=== PATIENT | female | born 1940 | race Caucasian/White ===

== ENCOUNTER 2016-09-23 08:38 | Inpatient (IN) | payer MEDICARE, OTHER ==
[~2016-09-23] VITALS: Ht 160 cm; Wt 70.5 kg
[~2016-09-23 08:38] MED LIST: ASPI81TA82 PO; ATOR20TA42 PO; DOXA1 PO; ENAL20TA81 PO; FERR324T4 OR; FISH1000 PO; HYDR-2768 PO; LASI20TA PO; LORT5TAB PO; METO50CR OR; NEXI40CA PO; NIAC500T5 PO; OYST500T77 PO; POTA-243 PO; VITA100018 OR; VITA250L OR
[2016-09-26] MEDS ORDERED: DIPH25CA PO ×2 (11:26)
[2016-09-26] MEDS ORDERED: CALC600T25 PO ×2 (11:26)
[2016-09-26] MEDS ORDERED: VITA500S3 SL ×2 (11:26)
[2016-09-26] MEDS ORDERED: NIAC500T67 PO ×2 (11:26)
[2016-09-26] MEDS ORDERED: CARV25TA PO ×2 (11:26)
[2016-09-26] MEDS ORDERED: MAPA500T13 PO ×2 (11:26)
[2016-09-26] MEDS ORDERED: ESSE250T PO ×2 (11:26)
[2016-09-26] MEDS ORDERED: ENAL20TA PO ×2 (11:26)
[2016-09-26] MEDS ORDERED: FISH1000 PO ×2 (11:26)
[2016-09-26] MEDS ORDERED: ASPI81TA81 PO ×2 (11:26)
[2016-09-26] MEDS ORDERED: D31000TA PO ×2 (11:26)
[2016-09-26] MEDS ORDERED: ATOR20TA15 PO ×2 (11:26)
[2016-09-26] MEDS ORDERED: ALLO100T PO ×2 (11:26)
[2016-09-26] MEDS ORDERED: FURO20TA PO ×2 (11:26)
[2016-09-26] MEDS ORDERED: FERR325T2 PO ×2 (11:27)
--- NOTE | 2016-09-30 08:36 | MH ---
cc: LYLANETTEYUN DATE OF ADMISSION: 10/05/2016 ADMITTING DIAGNOSIS Osteoarthritis of the right knee. Pain right knee. Gait disturbance. HISTORY The patient is a 76-year-old white female who has had a rather lengthy history of pain involving her right knee. In approximately 2007 she had undergone arthroscopic surgery for history of early arthritis as well as a medial meniscus tear. At that time a partial medial meniscectomy as well as a chondroplasty of the medial femoral condyle was completed. The patient reported lingering symptoms following treatment especially about the medial aspect of her knee which had persisted over the following years and with the passage of time the patient becoming somewhat more symptomatic which had begun to interfere with her ability to conform to walking activities. She had been taking Tylenol for pain management reporting a history of stage IV renal disease. She presented to the undersigned physician in July of this past year and at that time x-ray studies revealed obvious degenerative change with [id number] apposition about the medial compartment. Findings and treatment options were reviewed. At that time the patient was treated with an intra-articular steroid injection and followed on an outpatient basis thereafter. She experienced some temporary benefit from the injection and continued to try and conform to a walking exercise program. She was thus encouraged to continue with conservative management and seemed to be doing reasonably well until returning to the office in August of this year and at that time she reported that with the passage of time she was becoming progressively more symptomatic with pain that was now interfering with all weightbearing activities. She continued to take Tylenol for pain relief indicating that she was advised to limit various medications because of her stage IV renal disease. Her current x-ray studies revealed obvious degenerative change with [id number] apposition about the medial compartment for which findings and treatment options were again reviewed. The pros and cons of continuing with conservative management versus operative intervention that would involve total knee arthroplasty were outlined in detail. Emphasis was made regarding the fact that the decision to proceed with surgery would be left entirely to the patient's discretion as well as being dependent upon both medical and renal medicine clearance. The patient subsequently proceeded with medical evaluation in this regard and having received medical clearances as described and in compliance with her wishes to proceed with surgery as discussed. She is currently being admitted in order that total knee replacement be accomplished. PAST MEDICAL HISTORY Her past medical history, hospitalizations and surgeries have included childbirth in addition to the arthroscopic surgery described. Her medical illnesses include stage IV renal disease. Elevated cholesterol, gout and hypertension. MEDICATIONS Current medications: 1. Atorvastatin 20 milligrams daily. 2. Allopurinol 100 milligrams daily. 3. Enalapril 20 milligrams twice daily. 4. Carvedilol 25 milligrams twice daily. 5. Furosemide 20 milligrams daily. 6. Tylenol 500 milligrams daily. 7. Benadryl 25 milligrams daily. 8. Iron supplement 65 milligrams. 9. Niacin 500 milligrams daily. 10. Fish oil 1000 milligrams daily. 11. Vitamin B12 500 milligrams daily. 12. Vitamin D3 1000 international units daily. 13. Calcium 600 milligrams daily. 14. Magnesium 500 milligrams daily. 15. Aspirin 81 milligram tablet daily. ALLERGIES The patient denies any known drug allergies. REVIEW OF SYSTEMS She wears glasses. Denies headache, seizure or syncope. No sinus congestion or epistaxis. Auditory acuity intact. No tinnitus. No bleeding gums or dysphagia. Denies cough, shortness of breath, upper respiratory infection or tuberculosis. There is a positive history of pneumonia. No angina or heart disease. She is medically managed for hypertension. Her appetite is good. Bowel movements are regular. No gallbladder disease, ulcers or hemorrhoids. There is a positive history of hepatitis. No urinary tract infection. She has a history of stage IV renal disease but has not required dialysis treatment. No prior fractures. No psychiatric illness. Her remaining review of systems is unremarkable and noncontributory. FAMILY HISTORY The patient has been for 14 years but has cohabitated with her for almost a 40-year period of time. He is 74 years of age and described as being in good health. She has two sons and one daughter by a previous marriage, all of whom are indicated to be in good health. Family history is otherwise positive for hypertension, congestive heart failure and heart disease. 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 She completed a GED education. Denies active use of tobacco and ethanol. PHYSICAL EXAMINATION Height 5 feet 3 inches, weight 154 pounds. GENERAL: An alert, oriented and responsive 76-year-old white female who sits quietly upon examination table with no apparent distress. HEENT: Pupils are equally round and reactive to light. Extraocular movements full. Sclerae clear. External nares clear. External auditory canals clear. Semi edentulous in the mandibular distribution. Mucous membranes pink and moist. Pharynx clear. NECK: Neck is supple. Active range of motion without significant pain. Carotid pulse palpable bilaterally. Trachea midline. Thyroid without enlargement. LUNGS: Clear to auscultation and percussion. No CVA tenderness. No discomfort throughout the dorsal lumbar spine. HEART: Regular rhythm. No murmur or gallop. ABDOMEN: Soft, nontender. Bowel sounds present. PELVIC: Per primary care physician. EXTREMITIES: Right knee there is a mild fullness about the knee consistent with redundancy of soft tissue, medial joint line tenderness without palpable deformity. Apprehension and compression sign negative. A 0 to 105 degrees range of motion with pain at the extremes of mobility and mild crepitation elicited. No collateral ligamentous instability. April test and drawer sign negative. Pivot shift and Anayeli sign positive for medial compartment pain. Straight-leg raising unremarkable at 80 degrees. Satisfactory mobility of the right hip with no associated pain. Antalgic gait. NEUROLOGIC: Cranial nerves II-XII grossly intact. IMPRESSION Osteoarthritis right knee. Pain right knee. Gait disturbance. PLAN Right total knee arthroplasty. The nature of the planned surgical procedure, the potential complications and the risks associated, the expectations of surgery and the consent form have been thoroughly reviewed with the patient in the presence of her prior to admission to the hospital. [place] has indicated her full understanding regarding all of the above and given consent to proceed with treatment as outlined. Medical evaluation and clearance for surgery will be completed by her primary care physician, Dr. Ab Zuniga, renal medicine clearance per Dr. Baldwin who will also be consulted to assist with postoperative medical management. MD CHANDLER Waddell/EO /5:15 PM /8:31 AM
[2016-10-05 08:14] VITALS: BP 143/71; PULSE 68; RESP 16; TEMP 98.1; O2SAT 98
[2016-10-05] MEDS ORDERED: ceFAZolin 2 GM PREMIX 50 ML ONE (08:21)
[2016-10-05] MEDS ORDERED: SODIUM CHLORID 0.9% 500 ML IV PRN (08:45)
[2016-10-05] MEDS ORDERED: INSULIN HUMAN REGULAR 1,000 UNITS/10 ML VIAL SQ PRN (08:45)
[2016-10-05] MEDS ORDERED: CHLORHEXIDINE GLUCONATE 2 % 1 PACK (2 CLOTHS) TOPICAL PRN (08:45)
[2016-10-05] MEDS ORDERED: POVIDONE IODINE 7.5% SCRUB 118 ML BOTTLE TOPICAL SCH (08:45)
[2016-10-05] MEDS ORDERED: POVIDONE IODINE 5% (ANTISEPSIS KIT) 4 APPLICATIONS EACH NARE PRN (08:45)
[2016-10-05] MEDS ORDERED: ceFAZolin 2 GM PREMIX 50 ML IV SCH (08:45)
[2016-10-05] MEDS ORDERED: LACTATED RINGER'S 1000 ML IV PRN (08:45)
[2016-10-05] MEDS ORDERED: METOPROLOL TARTRATE 25 MG TAB PO PRN (08:45)
[2016-10-05] MEDS ORDERED: TRANEXAMIC ACID 1 GM PRIOR TO PROCEDURE IV SCH ×2 (09:00)
[2016-10-05] MEDS ORDERED: fentaNYL CITRATE 250 MCG/5 ML AMP ONE (09:42)
[2016-10-05] MEDS ORDERED: ACETAMINOPHEN 1000 MG/100 ML VIAL IV ONE (09:49)
[2016-10-05] MEDS ORDERED: ONDANSETRON HCL 4 MG/2 ML VIAL ONE (09:50)
[2016-10-05] MEDS ORDERED: ceFAZolin INJ 1,000 MG VIAL ONE ×2 (10:19→14:29)
[2016-10-05] MEDS ORDERED: LACTATED RINGER'S 1000 ML INJ 1,000 ML IV ONE (12:00)
[2016-10-05] MEDS ORDERED: TRANEXAMIC ACID 1 GM POST-OP IV SCH ×2 (12:00)
[2016-10-05] MEDS ORDERED: PROPOFOL 200 MG/20 ML AMP IV ONE (12:00)
[2016-10-05] MEDS ORDERED: PHENYLEPH/NS 1000 MCG/10 ML SYR IV ONE (12:00)
[2016-10-05] MEDS ORDERED: NEOSTIGMINE 3 MG/3 ML SYR IV ONE (12:00)
[2016-10-05] MEDS ORDERED: ePHEDrine/NS 25 MG/5 ML SYR IV ONE (12:00)
[2016-10-05] MEDS ORDERED: ONDANSETRON HCL 4 MG/2 ML VIAL IV PUSH ONE (12:00)
[2016-10-05] MEDS ORDERED: *morphine SULFATE 8 MG/ML PERIprocedure ONLY ONE (12:53)
[2016-10-05] MEDS ORDERED: MORPHINE SULFATE 4 MG/ML INJ ONE (12:54)
[2016-10-05] MEDS ORDERED: SODIUM CHLORIDE 0.9% FLUSH 5 ML FLUSH IVF PRN (13:00)
[2016-10-05] MEDS ORDERED: ONDANSETRON HCL 4 MG/2 ML VIAL IVP PRN (13:00)
[2016-10-05] MEDS ORDERED: ACETAMINOPHEN 325 MG TAB PO PRN (13:00)
[2016-10-05] MEDS ORDERED: PROMETHAZINE INJ 25 MG/ML VIAL IM PRN (13:00)
[2016-10-05] MEDS ORDERED: MISCELLANEOUS PHARMACY INFORMATION XX ONE (13:00)
[2016-10-05] MEDS ORDERED: NALOXONE HCL 0.4 MG/ML AMP IV PRN (13:00)
[2016-10-05] MEDS ORDERED: ACETAMINOPHEN/HYDROcodone 325 MG/5 MG TAB PO PRN (13:00)
[2016-10-05] MEDS ORDERED: diphenhydrAMINE HCL 25 MG CAP PO PRN (13:00)
[2016-10-05] MEDS ORDERED: Post-op Orders (for Pharmacy) MISC XX ONE (13:00)
[2016-10-05] MEDS ORDERED: ZOLPIDEM TARTRATE 5 MG TAB PO PRN (13:00)
[2016-10-05] MEDS ORDERED: TRANEXAMIC ACID INJ 1,000 MG in SODIUM CHLORIDE 0.9% INJ 100 ML IV SCH (13:00)
--- NOTE | 2016-10-05 13:37 | RADRPT ---
EXAM DATE/TIME: 10/05/2016 13:20 [facility] COMPARISON: No previous studies available for comparison. INDICATIONS : Post op, right knee replacement. MEDICAL HISTORY : None. SURGICAL HISTORY : None. ENCOUNTER: Initial ACUITY: 1 day PAIN SCORE: 0/10 LOCATION: Right knee FINDINGS: Two view examination of the right knee demonstrates no evidence of fracture or dislocation. Left knee arthroplasty. Postsurgical changes. CONCLUSION: Left knee arthroplasty.. Heri Abdalla MD on October 05, 2016 at 13:34 Board Certified Radiologist. This report was verified electronically.
[2016-10-05] MEDS: DEXT 5%-NACL 0.45% 1000 ML INJ 1,000 ML IV SCH (13:45)
--- NOTE | 2016-10-05 14:10 | MP ---
cc: YUN HERNANDEZ DATE OF SURGERY: 10/05/2016 PREOPERATIVE DIAGNOSIS Osteoarthritis of the right knee, pain right knee and gait disturbance. POSTOPERATIVE DIAGNOSIS Osteoarthritis of the right knee, pain right knee and gait disturbance. PROCEDURE Right total knee arthroplasty. SURGEON Yun Hernandez MD ANESTHESIA General endotracheal. INDICATIONS A 76-year-old white female with a lengthy history of right knee pain dating back to at least 2007 when she had undergone arthroscopic surgery for history of arthritis and medial meniscus tear. A partial medial meniscectomy as well as chondroplasty of the medial femoral condyle was completed. The patient reported lingering symptoms following treatment, especially about the medial aspect of her knee which had persisted over the following years. With the passage of time she became progressively more symptomatic with pain that began to interfere with her ability to conform to walking activities. She had been taking Tylenol for pain management, reporting history of stage IV renal disease. She presented to the undersigned physician in July of this past year and at that time her x-ray studies revealed obvious degenerative change with [id number] apposition about the medial compartment. Findings and treatment options were reviewed. At that time the patient received an intra-articular steroid injection and was followed on outpatient basis thereafter. She described temporary benefit from the injection and tried to continue with her walking exercise program. She returned to the office in August of this year and at that time reported that she was becoming increasingly more symptomatic with pain that was now interfering with all weightbearing activities. She had continued to use Tylenol for pain relief, indicating that she was advised to limit various medications because of her stage IV renal disease. Her current x-ray studies revealed obvious degenerative change with [id number]-[id number] apposition about the medial compartment for which findings and treatment options were again reviewed. The pros and cons of continuing with conservative management versus operative intervention involving total knee arthroplasty were outlined in detail. Emphasis was made regarding the fact that the decision to proceed with surgery would be left entirely to the patient's discretion as well as being dependent upon both medical and renal medicine clearance. The patient subsequently proceeded with these clearances and returned to the office indicating that she was desirous of proceeding with treatment as discussed and in compliance with her wishes she has currently been admitted in order that right total knee replacement be completed. FORMAT Following induction of satisfactory general anesthesia by endotracheal intubation as completed per the department of anesthesia, a tourniquet was established around the proximal portion of the right lower extremity. The extremity proper was isolated with a U drape, thereafter being prepped with Betadine solution and draped into a sterile field in the routine manner. Prior to initiation of the actual procedure the standard time-out protocol was completed. All parameters were appropriately addressed and confirmed by operating room personnel. The extremity was elevated for approximately 1 minute and the tourniquet thus inflated to 250 mmHg pressure. A sharp skin incision was initiated midline over the anterior aspect of the knee and developed to underlying subcutaneous tissue with hemostasis maintained by electrocautery. By deepening dissection the anterior capsule was exposed, a medial capsulotomy completed and the patella subluxed in a lateral orientation. Examination of the joint space revealed severe degenerative changes throughout the medial compartment with complete erosion of articular cartilage and subchondral bone exposed. Degenerative changes extended into the patellofemoral articulation. The articular surface of the patella was resected with power saw. The three hole guide was utilized for establishing post holes. Anterior cruciate ligament as well as medial and lateral meniscus structures were sharply excised. A centering hole was placed in the distal aspect of the femur allowing positioning of the intramedullary guide. The distal femoral cutting jig was attached and the distal femur resected. AP measurement noted 62.5 mm sizing to be appropriate. The matching cutting block was positioned, anterior, posterior and chamfer cuts were completed. The tibial plateau was thereafter subluxed in an anterior orientation allowing positioning of the extramedullary guide. The tibial plateau was resected and measured with 71 mm sizing determined to be satisfactory. A trial reduction followed utilizing a 62.5 mm anatomic femoral component and a 71 mm tibial base with a 10 mm bearing insert. The knee was readily brought to full extension. There was no laxity to varus valgus stress at both 0 and 90 degrees flexed posture. Orientation was confirmed as being appropriate with measurement of the pelvic guide through the mechanical axis of the knee. A trial reduction followed utilizing a 31 mm standard patellar button. Once again good tracking was demonstrated with no tendency toward subluxation. All trial components being removed, the remaining portion of the proximal tibia was prepared for insertion of the permanent component. The joint space was thoroughly lavaged with pulsating antibiotic solution, hemostasis being maintained by electrocautery. An autogenous bone plug was inserted into the distal femoral guide hole and thereafter preparation of [place] bone cement was utilized in inserting knee components in a sequential fashion which included a 71 mm fixed cruciate tibial plate to which a 10 mm Vanguard tibial bearing insert was secured with locking venegas. The 62.5 mm Vanguard femoral component was firmly seated onto the distal femur, excess cement being removed the knee was brought to full extension and thereafter the 31 mm standard three post patellar button was attached and maintained in place with patellar clamp while cement hardening was completed. Final range of motion assessment noted good tracking and stability throughout the knee. Irrigation was repeated with hemostasis maintained. Autovac drain tubes were inserted through superior stab wounds. The capsule was repaired with 0 Vicryl suture. The remaining portion of the wound was closed in layers in the routine manner, skin margins being reapproximated with a running subcuticular 3-0 Vicryl suture over which Steri-Strips were applied. Xeroform gauze and a bulky dry sterile dressing were placed. The tourniquet was deflated after 41 minutes of tourniquet time. The extremity being supported in a canvas knee splint, anesthesia was discontinued and she was thereafter transferred to a hospital bed and returned to the recovery room in satisfactory condition having tolerated her operative procedure well. Estimated blood loss was approximately 100 ccs as determined per anesthesia. All implants were of the [employer] laboratory tester. Yun Hernandez MD NBS/TLL /12:53 PM /1:47 PM
[2016-10-05] MEDS ORDERED: *ONDANSETRON 4 MG VIAL PERIprocedural Use ONLY ONE (14:55)
[2016-10-05] MEDS ORDERED: MORPHINE SULFATE 30 MG/30 ML PCA IV SCH (15:00)
[2016-10-05] MEDS ORDERED: DEXT 5%-NACL 0.45% 1000 ML INJ 1,000 ML IV SCH (15:00)
[2016-10-05] MEDS ORDERED: *ENALAPRILAT 1.25 MG/ML VIAL PERIprocedural Use ONLY ONE (15:31)
--- NOTE | 2016-10-05 15:40 | HHI.PR ---
Addendum to Inpatient Note Addendum Reason: Additional Documentation Additional Information This is a 76-year-old female who was seen on consultation for medical management following right total knee replacement. She was seen by the undersigned at the recovery unit. She is alert and oriented. She is complaining of nausea and vomited twice during this interview. Her pain is well controlled. She has a history of chronic kidney disease stage IV for which she sees Dr. Baldwin. She also has a history of hyperlipidemia, hypertension and gout. Full consultation to follow Plan for Pain control Nausea control DVT prophylaxis Resume home medications Follow renal indices Follow electrolytes and replace as needed Wound management per orthopedics Thank you for allowing us to participate in the care of this pleasant lady We'll be following her along with you on a daily basis while hospitalized John Levine MD Oct 05, 2016 15:40
[2016-10-05] MEDS ORDERED: *PROMETHAZINE 25 MG/ML VIAL PERIprocedural use ONLY ONE (16:21)
[2016-10-05 17:13] LABS: BICARBONATE 24.4 MEQ/L (21.0-32.0); POTASSIUM 4.6 MEQ/L (3.5-5.1)
--- NOTE | 2016-10-05 18:18 | PD.CONS ---
[facility] Service Nephrology Consult Requested By Dr. Carmona Reason for Consult Known to our services for CKD stage 4 Primary Care Physician Ab Zuniga M.D. History of Present Illness The patient is a 76 yo [place] female who is known to our services for CKD stage 4. She is admitted to this facility for R knee replacement that she underwent this AM. We have been consulted for renal management. She is seen in PACU and is recovering well thus far. She is alert and oriented and is good spirits. Says she is in minimal pain only. Had held her Enalapril as directed this AM and BP have been elevated. Otherwise, has no complaints currently. Past Family Social History Allergies: Coded Allergies: No Known Allergies (Verified , 10/05/16) Past Medical History CKD stage 4 HTN Anemia 2ndary hyperparathyroidism Vit D def GERD Hypomagnesemia Peripheral edema No hx of CHF HLD Gout Past Surgical History R knee replacement L knee arthroplasty Reported Medications Reported Meds & Active Scripts Active Reported Ferrous Sulfate DR (Ferrous Sulfate) 325 Mg Tabdr 1 Tab PO DAILY Aspir-81 (Aspirin) 81 Mg Tabdr 1 Tab PO DAILY Magnesium 250 Mg Tab 500 Mg PO DAILY Calcium (Calcium Carbonate) 600 Mg Tab 1 Cap PO DAILY D3 (Cholecalciferol) 1,000 Unit Tab 11 Cap PO DAILY Vitamin B-12 (Cyanocobalamin) 500 Mcg Subl 500 Mcg SL DAILY Fish Oil ([place]-3 Fatty Acids) 1,000 Mg Cap 1 Cap PO DAILY Niacin (Niacinamide) 500 Mg Tablet 1 Tab PO DAILY Diphenhydramine (Diphenhydramine HCl) 25 Mg Cap 25 Mg PO HS PRN Mapap Extra Strength (Acetaminophen) 500 Mg Tab 500 Mg PO HS Furosemide 20 Mg Tab 20 Mg PO DAILY Carvedilol 25 Mg Tab 25 Mg PO BID Enalapril (Enalapril Maleate) 20 Mg Tab 20 Mg PO BID Allopurinol 100 Mg Tab 100 Mg PO DAILY Atorvastatin (Atorvastatin Calcium) 20 Mg Tab 20 Mg PO HS Active Ordered Medications Current Medications Medications (Trade) Dose Ordered Sig/Donald Route Start Time Stop Time Status Last Admin Povidone Iodine 1 applic 1 applic ONCE TOPICAL 10/05/16 08:45 10/08/16 08:44 10/05/16 08:00 Lactated Ringer's 1,000 ml @ 30 mls/hr Q24H PRN IV 10/05/16 08:45 10/08/16 08:44 10/05/16 08:15 (NS 500 ml Inj) 500 ml @ 30 mls/hr [id number] PRN IV 10/05/16 08:45 10/08/16 08:44 (NS Flush) 2 ml UNSCH PRN IVF 10/05/16 13:00 IV Flush 2 ml 2 ml BID IVF 10/05/16 21:00 (Ancef Inj/NS Inj) 100 ml @ 200 mls/hr Q6H IV 10/05/16 15:00 10/06/16 03:29 10/05/16 15:00 ([place] 5-325 Mg) 1 tab Q4H PRN PO 10/05/16 13:00 10/07/16 15:00 ([place] 5-325 Mg) 2 tab Q4H PRN PO 10/05/16 13:00 10/07/16 15:00 (Tylenol) 650 mg Q6H PRN PO 10/05/16 13:00 (Zofran Inj) 4 mg Q6H PRN IVP 10/05/16 13:00 (Colace) 100 mg BID PRN PO 10/05/16 13:00 (Ambien) 5 mg HS PRN PO 10/05/16 13:00 (Narcan Inj) 0.4 mg UNSCH PRN IV 10/05/16 13:00 (Benadryl) 25 mg Q6H PRN PO 10/05/16 13:00 (Morphine 1 Mg/ ml CUSTOMER TRAINING SPECIALIST) 30 mg UNSCH IV 10/05/16 15:00 10/06/16 14:59 10/05/16 15:18 CUSTOMER TRAINING SPECIALIST Dosage Infused (Pha) 1 Q8HR .XX 10/05/16 14:00 (Phenergan Inj) 25 mg Q6H PRN IM 10/05/16 13:00 (Dilaudid) 4 mg Q4H PRN PO 10/07/16 15:00 Aspirin 325 mg 325 mg DAILY PO 10/06/16 09:00 (D5W-1/2 NS 1000 ml Inj) 1,000 ml @ 100 mls/hr Q10H IV 10/05/16 14:45 10/05/16 13:45 Family History Mother with CHF Brother with HTN and CVA Social History and lives locally with her spouse No EtOH No tobacco use No illicits 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 Physical Exam Vital Signs Vital Signs Date Time Temp Pulse Resp B/P Pulse Ox O2 Delivery O2 Flow Rate FiO2 10/05/16 15:35 16 10/05/16 15:30 58 16 166/74 97 Nasal Cannula 2 10/05/16 15:18 16 10/05/16 15:00 52 16 167/70 98 Nasal Cannula 2 10/05/16 14:30 52 16 142/73 100 Nasal Cannula 2 10/05/16 14:00 50 16 141/73 100 Nasal Cannula 2 10/05/16 13:45 50 16 138/67 100 Nasal Cannula 2 10/05/16 13:30 50 16 141/66 99 Nasal Cannula 2 10/05/16 13:15 52 16 149/68 99 Nasal Cannula 2 10/05/16 13:00 56 16 152/63 99 Nasal Cannula 2 10/05/16 12:45 96.5 68 16 134/62 99 Nasal Cannula 2 10/05/16 08:14 98.1 68 16 143/71 98 Physical Exam GENERAL: Laying in bed. NAD SKIN: Warm and dry. HEAD: Atraumatic. Normocephalic. EYES: Pupils equal and round. No scleral icterus. No injection or drainage. ENT: No nasal bleeding or discharge. Mucous membranes pink and moist. NECK: Trachea midline. No JVD. CARDIOVASCULAR: Regular rate and rhythm. RESPIRATORY: No accessory muscle use. Clear to auscultation. Breath sounds equal bilaterally. GASTROINTESTINAL: Abdomen soft, non-tender, nondistended. Hepatic and splenic margins not palpable. MUSCULOSKELETAL: Extremities without clubbing, cyanosis, or edema. No obvious deformities. R leg in brace NEUROLOGICAL: Awake and alert. No obvious cranial nerve deficits Normal speech. PSYCHIATRIC: Appropriate mood and affect; insight and judgment normal. Laboratory Laboratory Tests Test 10/05/16 10/05/16 08:10 16:36 Blood Type A NEGATIVE Antibody Screen NEGATIVE Blood Bank Comment Sodium Level 137 Potassium Level 4.6 Chloride Level 105 Carbon Dioxide Level 24.4 Anion Gap 8 Blood Urea Nitrogen 46 Creatinine 2.08 Estimat Glomerular Filtration 23 Rate Random Glucose 161 Calcium Level 8.7 Result Diagram: 10/05/16 1636 Imaging Last Impressions Knee X-Ray 10/05/16 1249 Signed Impressions: Service Date/Time: WedOctober 05, 2016 13:20 - CONCLUSION: Left knee arthroplasty.. Heri Abdalla MD Assessment and Plan Problem List: (1) CKD (chronic kidney disease) stage 4, GFR 15-29 ml/min Plan: The patient's baseline SCr is 2.1-2.3 with estimated GFR of 20-23. Post-op SCr seems to fall in line with baseline function. She is to continue on IVF overnight with consideration of discontinuing or decreasing tomorrow if her po intake is adequate. Continue to hold ACEi for the present as well as Lasix (both can be resumed at discharge). Continue to avoid any nephrotoxic medications such as NSAIDs (including Tordadol ) and iodinated contrast. We will continue to follow during admission. (2) HTN (hypertension) Plan: Enalapril has been held Will start Amlodipine 5mg QD to help with BP control. (3) Hypomagnesemia Plan: Hx of. Will check Mg levels (4) Secondary hyperparathyroidism of renal origin Plan: Check iPTH and Vit D (5) Vitamin D deficiency (6) Status post total right knee replacement Noemy Joyner Oct 05, 2016 18:18
--- NOTE | 2016-10-05 18:20 | PD.CONS ---
HPI Service [facility] Hospitalists Consult Requested By Dr. Hernandez Reason for Consult Medical management Primary Care Physician Ab Zuniga M.D. Diagnoses: History of Present Illness This is a pleasant 76-year-old female with history of mast arthritis, chronic kidney disease stage IV, hypertension, gout, hyperlipidemia. Patient has prior history of arthritis of the right knee, has had previous arthroscopic surgery due to medial meniscus tear. Patient has continued to have problems, she has failed outpatient therapy. She has a history of chronic kidney disease stage IV for which she sees Dr. Baldwin regularly , she has been stable and received renal clearance from him. Patient was admitted for elective surgery, she underwent a right total knee arthroplasty. Patient tolerated procedure fairly well, she's had nausea and vomiting which is now controlled. Hospitalist services are requested for medical management. Review of Systems Constitutional: DENIES: Diaphoretic episodes, Fatigue, Fever, Weight gain, Weight loss, Chills, Dizziness, Change in appetite, Night Sweats Endocrine: DENIES: Abnorml menstrual pattern, Heat/cold intolerance, Polydipsia , Polyuria, Polyphagia Eyes: DENIES: Blurred vision, Diplopia, Eye inflammation, Eye pain, Vision loss , Photosensitivity, Double Vision Ears, nose, mouth, throat: DENIES: Tinnitus, Hearing loss, Vertigo, Nasal discharge, Oral lesions, Throat pain, Hoarseness, Ear Pain, Running Nose, Epistaxis, Sinus Pain, Toothache, Odynophagia Respiratory: DENIES: Apneas, Cough, Snoring, Wheezing, Hemoptysis, Sputum production, Shortness of breath Cardiovascular: DENIES: Chest pain, Palpitations, Syncope, Dyspnea on Exertion , PND, Lower Extremity Edema, Orthopnea, Claudication Gastrointestinal: DENIES: Abdominal pain, Black stools, Bloody stools, Constipation, Diarrhea, Nausea, Vomiting, Difficulty Swallowing, Anorexia Genitourinary: DENIES: Abnormal vaginal bleeding, Dysmenorrhea, Dyspareunia, Sexual dysfunction, Urinary frequency, Urinary incontinence, Urgency, Hematuria , Dysuria, Nocturia, Vaginal discharge Musculoskeletal: COMPLAINS OF: Joint pain, DENIES: Muscle aches, Stiffness, Joint Swelling, Back pain, Neck pain Integumentary: DENIES: Abnormal pigmentation, Pruritus, Rash, Nail changes, Breast masses, Breast skin changes, Nipple discharge Hematologic/lymphatic: DENIES: Bruising, Lymphadenopathy Immunologic/allergic: DENIES: Eczema, Urticaria Neurologic: DENIES: Abnormal gait, Headache, Localized weakness, Paresthesias, Seizures, Speech Problems, Tremor, Poor Balance Psychiatric: DENIES: Anxiety, Confusion, Mood changes, Depression, Hallucinations, Agitation, Suicidal Ideation, Homicidal Ideation, Delusions Past Family Social History Past Medical History CK D stage IV, follows up regularly with Dr. Baldwin Arthritis Hyperlipidemia Gout Hypertension Past Surgical History Arthroscopic surgery Reported Medications Reported Meds & Active Scripts Active Reported Ferrous Sulfate DR (Ferrous Sulfate) 325 Mg Tabdr 1 Tab PO DAILY Aspir-81 (Aspirin) 81 Mg Tabdr 1 Tab PO DAILY Magnesium 250 Mg Tab 500 Mg PO DAILY Calcium (Calcium Carbonate) 600 Mg Tab 1 Cap PO DAILY D3 (Cholecalciferol) 1,000 Unit Tab 11 Cap PO DAILY Vitamin B-12 (Cyanocobalamin) 500 Mcg Subl 500 Mcg SL DAILY Fish Oil ([place]-3 Fatty Acids) 1,000 Mg Cap 1 Cap PO DAILY Niacin (Niacinamide) 500 Mg Tablet 1 Tab PO DAILY Diphenhydramine (Diphenhydramine HCl) 25 Mg Cap 25 Mg PO HS PRN Mapap Extra Strength (Acetaminophen) 500 Mg Tab 500 Mg PO HS Furosemide 20 Mg Tab 20 Mg PO DAILY Carvedilol 25 Mg Tab 25 Mg PO BID Enalapril (Enalapril Maleate) 20 Mg Tab 20 Mg PO BID Allopurinol 100 Mg Tab 100 Mg PO DAILY Atorvastatin (Atorvastatin Calcium) 20 Mg Tab 20 Mg PO HS Allergies: Coded Allergies: No Known Allergies (Verified , 10/05/16) Active Ordered Medications Inpatient Medications Acetaminophen (Tylenol) 650 mg Q6H PRN PO Temp > 101; Start 10/05/16 at 13:00 Acetaminophen/ Hydrocodone Bitart ([place] 5-325 Mg) 2 tab Q4H PRN PO PAIN SCALE 5 TO 10; Start 10/05/16 at 13:00; Stop 10/07/16 at 15:00 Aspirin 325 mg 325 mg DAILY PO ; Start 10/06/16 at 09:00 Cefazolin Sodium/ Dextrose 50 ml @ 100 mls/hr HE[employer] ADVISORY SERVICES MANAGER IV Last administered on 10/05/16t 09:00; Start 10/05/16 at 08:45; Stop 10/08/16 at 08:44 Cefazolin Sodium/ Sodium Chloride (Ancef Inj/NS Inj) 100 ml @ 200 mls/hr Q6H IV Last administered on 10/05/16 15:00; Start 10/05/16 at 15:00; Stop at 03:29 Chlorhexidine Gluconate (Chlorhexidine 2% Cloth) 3 pack HEALTHCARE ADVISORY SERVICES MANAGER PRN TOPICAL SEE LABEL COMMENTS Last administered on 10/05/16 07:00; Start 10/05/16 at 08:45 ; Stop 10/08/16 at 08:44 Dextrose/Sodium Chloride (D5W-1/2 NS 1000 ml Inj) 1,000 ml @ 100 mls/hr Q10H IV Last administered on 10/05/16 13:45; Start 10/05/16 at 14:45 Diphenhydramine HCl (Benadryl) 25 mg Q6H PRN PO ITCHING; Start 10/05/16 at 13: 00 Docusate Sodium (Colace) 100 mg BID PRN PO constipation; Start 10/05/16 at 13: 00 Hydromorphone HCl (Dilaudid) 4 mg Q4H PRN PO PAIN SCALE 4 TO 10; Start at 15:00 Insulin Human Regular (NovoLIN R INJ) See Protocol Table ... HEALTHCARE ADVISORY SERVICES MANAGER PRN SQ SEE PROTOCOL TABLE; Start 10/05/16 at 08:45; Stop 10/08/16 at 08:44 IV Flush (NS Flush) 2 ml UNSCH PRN IVF FLUSH AFTER USING IV ACCESS; Start 10/05 at 13:00 IV Flush 2 ml 2 ml BID IVF ; Start 10/05/16 at 21:00 Lactated Ringer's 1,000 ml @ 30 mls/hr Q24H PRN IV SEE LABEL COMMENTS Last administered on 10/05/16 08:15; Start 10/05/16 at 08:45; Stop 10/08/16 at 08:44 Metoprolol Tartrate (Lopressor) 25 mg HEALTHCARE ADVISORY SERVICES MANAGER PRN PO SEE LABEL COMMENTS; Start 10/05/16 at 08:45; Stop 10/08/16 at 08:44 Miscellaneous Information (Post-op Orders (for Pharmacy)) STAT ONCE XX ; Start 10/05/16 at 13:00; Stop 10/05/16 at 14:28; Status DC Miscellaneous Medication ([facility] Pharmacy Information) ONCE ONCE XX ; Start at 13:00; Stop 10/05/16 at 14:57; Status DC Morphine Sulfate (Morphine 1 Mg/ ml FAN BLADE ALIGNER) 30 mg UNSCH IV Last administered on 15:18; Start 10/05/16 at 15:00; Stop 10/06/16 at 14:59 Naloxone HCl (Narcan Inj) 0.4 mg UNSCH PRN IV RESPIRATORY RATE LESS THAN 10; Start 10/05/16 at 13:00 Ondansetron HCl (Zofran Inj) 4 mg Q6H PRN IVP NAUSEA OR VOMITING; Start at 13:00 FAN BLADE ALIGNER Dosage Infused (Pha) 1 Q8HR .XX ; Start 10/05/16 at 14:00 Povidone Iodine (Betadine 5% Antisepsis Kit) 1 applic HEALTHCARE ADVISORY SERVICES MANAGER PRN EACH NARE SEE LABEL COMMENTS Last administered on 10/05/16 08:30; Start 10/05/16 at 08:45 ; Stop 10/08/16 at 08:44 Povidone Iodine 1 applic 1 applic ONCE TOPICAL Last administered on 10/05/16 08:00; Start 10/05/16 at 08:45; Stop 10/08/16 at 08:44 Promethazine HCl (Phenergan Inj) 25 mg Q6H PRN IM nausea; Start 10/05/16 at 13: 00 Sodium Chloride (NS 500 ml Inj) 500 ml @ 30 mls/hr [id number] PRN IV SEE LABEL COMMENTS; Start 10/05/16 at 08:45; Stop 10/08/16 at 08:44 Tranexamic Acid 1000 mg/Sodium Chloride 110 ml @ 220 mls/hr ONCE IV ; Start at 12:00; Stop 10/05/16 at 18:00; Status DC Zolpidem Tartrate (Ambien) 5 mg HS PRN PO SLEEP; Start 10/05/16 at 13:00 Family History Hypertension, CHF, heart disease Social History Patient is , lives with . Has grown children No smoking No Substance abuse No alcohol Physical Exam Vital Signs Vital Signs Date Time Temp Pulse Resp B/P Pulse Ox O2 Delivery O2 Flow Rate FiO2 10/05/16 15:35 16 10/05/16 15:30 58 16 166/74 97 Nasal Cannula 2 10/05/16 15:18 16 10/05/16 15:00 52 16 167/70 98 Nasal Cannula 2 10/05/16 14:30 52 16 142/73 100 Nasal Cannula 2 10/05/16 14:00 50 16 141/73 100 Nasal Cannula 2 10/05/16 13:45 50 16 138/67 100 Nasal Cannula 2 10/05/16 13:30 50 16 141/66 99 Nasal Cannula 2 10/05/16 13:15 52 16 149/68 99 Nasal Cannula 2 10/05/16 13:00 56 16 152/63 99 Nasal Cannula 2 10/05/16 12:45 96.5 68 16 134/62 99 Nasal Cannula 2 10/05/16 08:14 98.1 68 16 143/71 98 Physical Exam GENERAL: This is a well-nourished, well-developed patient, in no apparent distress. SKIN: No rashes, ecchymoses or lesions. Cool and dry. HEAD: Atraumatic. Normocephalic. No temporal or scalp tenderness. EYES: Pupils equal round and reactive. Extraocular motions intact. No scleral icterus. No injection or drainage. ENT: Nose without bleeding, purulent drainage or septal hematoma. Throat without erythema, tonsillar hypertrophy or exudate. Uvula midline. Airway patent. NECK: Trachea midline. No JVD or lymphadenopathy. Supple, nontender, no meningeal signs. CARDIOVASCULAR: Regular rate and rhythm without murmurs, gallops, or rubs. RESPIRATORY: Clear to auscultation. Breath sounds equal bilaterally. No wheezes , rales, or rhonchi. GASTROINTESTINAL: Abdomen soft, non-tender, nondistended. No hepato-splenomegaly , or palpable masses. No guarding. MUSCULOSKELETAL: Right leg with bulky dressing, drain in place. Currently on CPM. Intact sensation to the right foot, bilateral pedal pulses 2+ bilaterally. Intact sensation to the right foot. No other joint abnormalities NEUROLOGICAL: Awake alert oriented 3. No focal deficits Laboratory Laboratory Tests Test 10/05/16 10/05/16 08:10 16:36 Blood Type A NEGATIVE Antibody Screen NEGATIVE Blood Bank Comment Sodium Level 137 Potassium Level 4.6 Chloride Level 105 Carbon Dioxide Level 24.4 Anion Gap 8 Blood Urea Nitrogen 46 Creatinine 2.08 Estimat Glomerular Filtration 23 Rate Random Glucose 161 Calcium Level 8.7 Result Diagram: 10/05/16 1636 Imaging Last Impressions Knee X-Ray 10/05/16 8829 Signed Impressions: Service Date/Time: Wednesday, October 05, 2016 13:20 - CONCLUSION: Left knee arthroplasty.. Heri Abdalla MD A/P Diagnosis: (1) Status post total right knee replacement (2) CKD (chronic kidney disease) stage 4, GFR 15-29 ml/min (3) HTN (hypertension) (4) Hyperlipidemia (5) Arthritis Assessment and Plan Thank you for this consultation, we will assist with medical management History of arthritis to right knee, status post right total knee replacement -Continue with postoperative orthopedic care to include pain management, physical therapy, wound care Pain management as needed Antiemetics as needed Start Xarelto 10 mg by mouth daily for DVT prophylaxis, continue with SCD -Physical therapy CK D stage IV Dr. Baldwin has been consulted Avoid nephrotoxic agents Monitor BMP Continue with IV fluids Hypertension, stable Continue with home medication Hyperlipidemia, stable -Continue home medications Gout Continue home medications Home medications reviewed, initiated as indicated Continue with Xarelto for DVT prophylaxis CBC and BMP in the morning Plan of care has been discussed with the patient, attending and registered nurse. Further management of the patient will be dependent on the hospital course This patient was seen by myself and Dr. Levine, this consultation is written on his behalf Problem Qualifiers (1) HTN (hypertension): Qualified Code: I10 - Essential hypertension (2) Hyperlipidemia: Qualified Code: E78.2 - Mixed hyperlipidemia Deyanira Stephens Oct 05, 2016 18:20
[2016-10-05] MEDS: amLODIPine BESYLATE 5 MG TAB PO SCH (19:36)
[2016-10-05 19:53] LABS: MAGNESIUM 1.7 MG/DL (1.5-2.5)
[2016-10-05] MEDS ORDERED: ENALAPRIL MALEATE 10 MG TAB PO SCH (21:00)
[2016-10-05] MEDS: SODIUM CHLORIDE 0.9% FLUSH 5 ML FLUSH IVF SCH (21:13)
[2016-10-05] MEDS: CARVEDILOL 12.5 MG TAB PO SCH (21:13)
[2016-10-05] MEDS: ATORVASTATIN 20 MG TAB PO SCH (21:13)
[2016-10-05] MEDS: PCA - TOTAL MG MORPHINE DELIVERED PER SHIFT SCH ×2 (21:14→21:40)
[2016-10-05 21:51] VITALS: BP 170/82; PULSE 68; RESP 20; TEMP 96.2; O2SAT 97
[2016-10-05 21:58] VITALS: BP 170/82; PULSE 68; RESP 20; TEMP 96.2; O2SAT 97
[2016-10-06] MEDS: DEXT 5%-NACL 0.45% 1000 ML INJ 1,000 ML IV SCH ×2 (00:57→10:45)
[2016-10-06 01:32] VITALS: BP 149/79; PULSE 75; RESP 16; TEMP 96.8; O2SAT 98
[2016-10-06 05:20] VITALS: BP 146/67; PULSE 99; RESP 16; TEMP 97.5; O2SAT 96
[2016-10-06] MEDS: PCA - TOTAL MG MORPHINE DELIVERED PER SHIFT SCH ×3 (05:27→21:36)
[2016-10-06 06:22] LABS: HEMATOCRIT 26.6 % (35.0-46.0); MEAN CELL VOLUME 96.2 FL (80.0-100.0); MEAN CORPUSCULAR HEMOGLOBIN 32.1 PG (27.0-34.0); MEAN CORPUSCULAR HGB CONC 33.4 % (32.0-36.0); PLATELET COUNT 145 TH/MM3 (150-450); RED BLOOD COUNT 2.76 MIL/MM3 (4.00-5.30); RED CELL DISTRIBUTION WIDTH 13.5 % (11.6-17.2); REVIEW FLAG FINAL; WHITE BLOOD COUNT 11.3 TH/MM3 (4.0-11.0)
[2016-10-06] MEDS ORDERED: ASPI325T PO (06:44)
[2016-10-06] MEDS ORDERED: HYDR-3516 PO (06:44)
--- NOTE | 2016-10-06 06:46 | HHI.FF ---
Face to Face Verification Diagnosis: (1) DJD (degenerative joint disease) of knee Physical Therapy Gait training Knee: Total knee, Protocol: Right, Full weight bearing Right LE Weight Bearing: WB as tolerated Right LE Range of Motion: Active ROM Nursing Dressing Changes: Daily dressing change I have seen patient Angeles Quintero on 10/06/16. My clinical findings support the need for the requested home health care services because: Limited ability to care for self High risk of falls I certify that my clinical findings support that this patient is homebound because: Post-op weakness Unsteady gait/balance Unsafe to leave home unassisted Lon Hernandez MD Oct 06, 2016 06:46
[2016-10-06] MEDS ORDERED: WALKER WHEELS/F1 MIS (06:48)
[2016-10-06 06:50] LABS: BICARBONATE 22.7 MEQ/L (21.0-32.0); POTASSIUM 4.5 MEQ/L (3.5-5.1)
[2016-10-06 08:00] VITALS: BP 136/65; PULSE 83; RESP 18; TEMP 97.7; O2SAT 97
[2016-10-06] MEDS: SODIUM CHLORIDE 0.9% FLUSH 5 ML FLUSH IVF SCH ×2 (08:23→21:20)
[2016-10-06] MEDS: CYANOCOBALAMIN 1,000 MCG TAB PO SCH (08:23)
[2016-10-06] MEDS: CARVEDILOL 12.5 MG TAB PO SCH ×2 (08:23→21:18)
[2016-10-06] MEDS: CHOLECALCIFEROL (VIT D3) 1000 UNIT TAB PO SCH (08:23)
[2016-10-06] MEDS: CALCIUM CARBONATE 1.25 GM (CA 500 MG) TAB PO SCH (08:23)
[2016-10-06] MEDS: amLODIPine BESYLATE 5 MG TAB PO SCH (08:24)
[2016-10-06] MEDS: FERROUS SULFATE 325 MG (65 MG ELEMENTAL IRON) TAB PO SCH (08:24)
[2016-10-06] MEDS ORDERED: ASPIRIN EC 325 MG TABEC PO SCH ×2 (09:00→21:00)
[2016-10-06] MEDS ORDERED: RIVAROXABAN 10 MG TAB PO SCH (09:00)
[2016-10-06] MEDS ORDERED: FUROSEMIDE 20 MG TAB PO SCH (09:00)
[2016-10-06] MEDS ORDERED: ASPIRIN 325 MG TAB PO SCH (09:00)
--- NOTE | 2016-10-06 11:38 | HHI.PR ---
Subjective Subjective Remarks Awake Up in chair Encourage by mouth fluids, patient states oral cavity dry Afebrile Review of Systems Constitutional Constitutional: Fatigue, Weakness Constitutional Remarks 10 point ROS done positives noted, she is status post right total knee GI/Abdomen GI/Abdomen Remarks Monitor bowel regimen none since admission Musculoskeletal MS: Weakness, Stiffness (encourage movement and up with physical therapy, patient is status post right total knee arthroplasty), Discomfort/Pain (right knee) Psychiatric Psychiatric: Normal Mood Vitals/Results Intake & Output 10/05/16 10/05/16 10/06/16 14:59 22:59 06:59 Intake Total 100 ml 0 ml Output Total 400 ml 845 ml Balance 100 ml -400 ml -845 ml Intake Oral 0 ml IV Total 100 ml Output Urine Total 400 ml 825 ml Drainage Total 0 ml 20 ml # Voids 2 Vital Signs Vital Signs Date Time Temp Pulse Resp B/P Pulse Ox O2 Delivery O2 Flow Rate FiO2 10/06/16 08:00 97.7 83 18 136/65 97 10/06/16 05:27 16 10/06/16 05:20 97.5 99 16 146/67 96 10/06/16 01:32 96.8 75 16 149/79 98 10/05/16 21:58 96.2 68 20 170/82 97 10/05/16 21:51 96.2 68 20 170/82 97 10/05/16 21:40 17 10/05/16 19:00 56 16 156/70 99 Room Air 10/05/16 18:00 58 16 161/77 99 Room Air 10/05/16 17:00 50 16 158/68 96 Room Air 10/05/16 16:00 52 16 160/69 97 10/05/16 15:35 16 10/05/16 15:30 58 16 166/74 97 Nasal Cannula 2 10/05/16 15:18 16 10/05/16 15:00 52 16 167/70 98 Nasal Cannula 2 10/05/16 14:30 52 16 142/73 100 Nasal Cannula 2 10/05/16 14:00 50 16 141/73 100 Nasal Cannula 2 10/05/16 13:45 50 16 138/67 100 Nasal Cannula 2 10/05/16 13:30 50 16 141/66 99 Nasal Cannula 2 10/05/16 13:15 52 16 149/68 99 Nasal Cannula 2 10/05/16 13:00 56 16 152/63 99 Nasal Cannula 2 10/05/16 12:45 96.5 68 16 134/62 99 Nasal Cannula 2 CBC/BMP: 10/06/16 0607 10/06/16 0607 Lab Results Laboratory Tests Test 10/05/16 10/05/16 10/06/16 16:30 16:36 06:07 Magnesium Level 1.7 MG/DL 25-Hydroxy Vitamin D Total 46.0 ng/ML Sodium Level 137 MEQ/L 135 MEQ/L Potassium Level 4.6 MEQ/L 4.5 MEQ/L Chloride Level 105 MEQ/L 103 MEQ/L Carbon Dioxide Level 24.4 MEQ/L 22.7 MEQ/L Anion Gap 8 MEQ/L 9 MEQ/L Blood Urea Nitrogen 46 MG/DL 39 MG/DL Creatinine 2.08 MG/DL 2.14 MG/DL Estimat Glomerular Filtration 23 ML/MIN 22 ML/MIN Rate Random Glucose 161 MG/DL 143 MG/DL Calcium Level 8.7 MG/DL 8.3 MG/DL White Blood Count 11.3 TH/MM3 Red Blood Count 2.76 MIL/MM3 Hemoglobin 8.9 GM/DL Hematocrit 26.6 % Mean Corpuscular Volume 96.2 FL Mean Corpuscular Hemoglobin 32.1 PG Mean Corpuscular Hemoglobin 33.4 % Concent Red Cell Distribution Width 13.5 % Platelet Count 145 TH/MM3 Mean Platelet Volume 9.2 FL Phosphorus Level 2.5 MG/DL Albumin 3.0 GM/DL Imaging Remarks Last Impressions Knee X-Ray 10/05/16 1249 Signed Impressions: Service Date/Time: Wednesday, October 05, 2016 13:20 - CONCLUSION: Left knee arthroplasty.. Heri Abdalla MD Current Medications Administered Medications Medications (Trade) Dose Ordered Sig/Donald Route PRN Reason Start Time Stop Time Status Last Admin Dose Admin Povidone Iodine (Betadine 7.5% Scrub) 1 applic ONCE TOPICAL 10/05/16 08:45 10/08/16 08:44 10/05/16 08:00 Morphine Sulfate (Morphine 1 Mg/ ml STATE DIRECTOR) 30 mg UNSCH IV 10/05/16 15:00 10/06/16 14:59 10/05/16 15:18 STATE DIRECTOR Dosage Infused (Pha) 1 1 Q8HR .XX 10/05/16 14:00 10/06/16 05:27 Dextrose/Sodium Chloride (D5W-1/2 NS 1000 ml Inj) 1,000 ml @ 100 mls/hr Q10H IV 10/05/16 14:45 10/06/16 00:57 Atorvastatin Calcium (Lipitor) 20 mg HS PO 10/05/16 21:00 10/05/16 21:13 Carvedilol (Coreg) 25 mg BID PO 10/05/16 21:00 10/06/16 08:23 Cholecalciferol (Vitamin D3) 1,000 units DAILY PO 10/06/16 09:00 10/06/16 08:23 Cyanocobalamin (Vitamin B12) 500 mcg DAILY PO 10/06/16 09:00 10/06/16 08:23 Calcium Carbonate (Oscal) 500 mg DAILY PO NS 10/06/16 09:00 10/06/16 08:23 Ferrous Sulfate (Ferrous Sulfate) 325 mg DAILY PO NS 10/06/16 09:00 10/06/16 08:24 Amlodipine Besylate (Norvasc) 5 mg DAILY PO 10/05/16 18:15 10/06/16 08:24 Aspirin (Ecotrin Ec) 325 mg DAILY PO 10/06/16 09:00 10/06/16 08:24 Physical Exam General General Appearance: Well Developed (for her age), No Acute Distress Eyes Eye Exam: Pupils Reactive Ears & Nose Ears & Nose Exam: Nasal Mucosa Obert (pale) Throat Throat Exam: Oral Mucosa Obert & Moist (pale dry) Neck Neck Exam: Neck Supple Pulmonary Resp Exam: Clear Bilaterally Resp Remarks In encouraged to turn cough and deep breathe Cardiology CV Exam: Regular, Good Perfusion Gastrointestinal/Abdomen GI Exam: Soft, Non-Tender, Bowel Sounds Present Musculoskeletal MS Exam: Good Strength (adequate) Extremeties Extremities Exam: No Edema, Pedal Pulses Palpable Neurologic Neuro Exam: Awake, Oriented, Speech Clear, Moving All Extremities (limited on the right leg) PUD Prophylasis PUD Remarks Xarelto to be evaluated per Dr. Baldwin, on hold for now Assessment/Plan Assessment/Plan (1) Status post total right knee replacement (2) CKD (chronic kidney disease) stage 4, GFR 15-29 ml/min (3) HTN (hypertension) (4) Hyperlipidemia (5) Arthritis Vital signs reviewed, normal trends pulse rate 99, afebrile Vital signs reviewed leukocytosis mild at 11 3, mild hyponatremia 135, chronic kidney disease, mild hyperglycemia 143 Low vitamin D level started on by mouth dose Check labs in the morning History of arthritis to right knee, status post right total knee replacement, day 1, postoperative orthopedic care to include pain management, physical therapy, wound care per orthopedic team Home within the next day or 2 Xarelto on hold to be evaluated per Dr. Baldwin secondary to her renal function. Will follow his recommendations -Physical therapy CK D stage IV, IV fluids off today, encourage by mouth liquids Dr. Baldwin has been consulted Avoid nephrotoxic agents Hypertension, stable Medical management Hyperlipidemia, stable Medical management Gout Medical management no acute complaints Discharge planning per Ortho within the next day or 2 Discussed with nurse Discussed with patient Discussed with Dr. Levine, seen on his behalf Macey De Leon Oct 06, 2016 11:38
[2016-10-06 12:00] VITALS: BP 107/67; PULSE 71; RESP 18; TEMP 96.2; O2SAT 96
--- NOTE | 2016-10-06 15:47 | HHI.NPPN ---
Subjective History of Present Illness The patient is a 76 yo [place] female who is known to our services for CKD stage 4. She is admitted to this facility for R knee replacement that she underwent this AM. We have been consulted for renal management. She is seen in PACU and is recovering well thus far. She is alert and oriented and is good spirits. Says she is in minimal pain only. Otherwise, has no complaints currently. Interval History Patient indicating that she has a good appetite. No verbal complaints currently. Objective Data Data 10/05/16 10/06/16 19:00 07:00 Intake Total 100 ml 0 ml Output Total 300 ml 945 ml Balance -200 ml -945 ml Intake Oral 0 ml IV Total 100 ml Output Urine Total 300 ml 925 ml Drainage Total 20 ml # Voids 2 Vital Signs Date Time Temp Pulse Resp B/P Pulse Ox O2 Delivery O2 Flow Rate FiO2 10/06/16 12:00 96.2 71 18 107/67 96 10/06/16 08:00 97.7 83 18 136/65 97 10/06/16 05:27 16 10/06/16 05:20 97.5 99 16 146/67 96 10/06/16 01:32 96.8 75 16 149/79 98 10/05/16 21:58 96.2 68 20 170/82 97 10/05/16 21:51 96.2 68 20 170/82 97 10/05/16 21:40 17 10/05/16 19:00 56 16 156/70 99 Room Air 10/05/16 18:00 58 16 161/77 99 Room Air 10/05/16 17:00 50 16 158/68 96 Room Air 10/05/16 16:00 52 16 160/69 97 -: 10/06/16 0607 10/06/16 0607 Medication Review Inpatient Medications Acetaminophen (Tylenol) 650 mg Q6H PRN PO Temp > 101; Start 10/05/16 at 13:00 Acetaminophen/ Hydrocodone Bitart ([place] 5-325 Mg) 2 tab Q4H PRN PO PAIN SCALE 5 TO 10; Start 10/05/16 at 13:00; Stop 10/07/16 at 15:00 Amlodipine Besylate (Norvasc) 5 mg DAILY PO Last administered on 10/06/16t 08: 24; Start 10/05/16 at 18:15 Aspirin (Ecotrin Ec) 325 mg DAILY PO Last administered on 10/06/16 08:24; Start 10/06/16 at 09:00 Aspirin 325 mg 325 mg DAILY PO ; Start 10/06/16 at 09:00; Stop 10/06/16 at 09:00 ; Status DC Atorvastatin Calcium (Lipitor) 20 mg HS PO Last administered on 10/05/16 21:13 ; Start 10/05/16 at 21:00 Calcium Carbonate (Oscal) 500 mg DAILY PO NS Last administered on 10/06/16 08: 23; Start 10/06/16 at 09:00 Carvedilol (Coreg) 25 mg BID PO Last administered on 10/06/16 08:23; Start at 21:00 Cefazolin Sodium/ Dextrose 50 ml @ 100 mls/hr JOURNAL ENTRY AUDIT CLERK IV Last administered on 10/05/16 09:00; Start 10/05/16 at 08:45; Stop 10/08/16 at 08:44 Cefazolin Sodium/ Sodium Chloride (Ancef Inj/NS Inj) 100 ml @ 200 mls/hr Q6H IV Last administered on 10/06/16 02:32; Start 10/05/16 at 15:00; Stop at 03:29; Status DC Chlorhexidine Gluconate (Chlorhexidine 2% Cloth) 3 pack JOURNAL ENTRY AUDIT CLERK PRN TOPICAL SEE LABEL COMMENTS Last administered on 10/05/16 07:00; Start 10/05/16 at 08:45 ; Stop 10/08/16 at 08:44 Cholecalciferol (Vitamin D3) 1,000 units DAILY PO Last administered on 08:23; Start 10/06/16 at 09:00 Cyanocobalamin (Vitamin B12) 500 mcg DAILY PO Last administered on 10/06/16 08 :23; Start 10/06/16 at 09:00 Dextrose/Sodium Chloride (D5W-1/2 NS 1000 ml Inj) 1,000 ml @ 100 mls/hr Q10H IV Last administered on 10/06/16 00:57; Start 10/05/16 at 14:45 Diphenhydramine HCl (Benadryl) 25 mg Q6H PRN PO ITCHING; Start 10/05/16 at 13: 00 Docusate Sodium (Colace) 100 mg BID PRN PO constipation; Start 10/05/16 at 13: 00 Enalapril Maleate (Vasotec) 20 mg BID PO ; Start 10/05/16 at 21:00; Stop at 21:00; Status DC Ferrous Sulfate (Ferrous Sulfate) 325 mg DAILY PO NS Last administered on 08:24; Start 10/06/16 at 09:00 Furosemide (Lasix) 20 mg DAILY PO ; Start 10/06/16 at 09:00; Stop 10/06/16 at 09 :00; Status DC Hydromorphone HCl (Dilaudid) 4 mg Q4H PRN PO PAIN SCALE 4 TO 10; Start at 15:00 Insulin Human Regular (NovoLIN R INJ) See Protocol Table ... JOURNAL ENTRY AUDIT CLERK PRN SQ SEE PROTOCOL TABLE; Start 10/05/16 at 08:45; Stop 10/08/16 at 08:44 IV Flush (NS Flush) 2 ml UNSCH PRN IVF FLUSH AFTER USING IV ACCESS; Start 10/05 at 13:00 IV Flush 2 ml 2 ml BID IVF ; Start 10/05/16 at 21:00 Lactated Ringer's 1,000 ml @ 30 mls/hr Q24H PRN IV SEE LABEL COMMENTS Last administered on 10/05/16 08:15; Start 10/05/16 at 08:45; Stop 10/05/16 at 18:21 ; Status DC Metoprolol Tartrate (Lopressor) 25 mg JOURNAL ENTRY AUDIT CLERK PRN PO SEE LABEL COMMENTS; Start 10/05/16 at 08:45; Stop 10/08/16 at 08:44 Miscellaneous Information (Post-op Orders (for Pharmacy)) STAT ONCE XX ; Start 10/05/16 at 13:00; Stop 10/05/16 at 14:28; Status DC Miscellaneous Medication ([facility] Information) ONCE ONCE XX ; Start at 13:00; Stop 10/05/16 at 14:57; Status DC Morphine Sulfate (Morphine 1 Mg/ ml BRAND ANALYST) 30 mg UNSCH IV Last administered on 15:18; Start 10/05/16 at 15:00; Stop 10/06/16 at 14:59; Status DC Naloxone HCl (Narcan Inj) 0.4 mg UNSCH PRN IV RESPIRATORY RATE LESS THAN 10; Start 10/05/16 at 13:00 Ondansetron HCl (Zofran Inj) 4 mg Q6H PRN IVP NAUSEA OR VOMITING; Start at 13:00 BRAND ANALYST Dosage Infused (Pha) 1 Q8HR .XX Last administered on 10/06/16 14:00; Start 10/05/16 at 14:00 Povidone Iodine (Betadine 5% Antisepsis Kit) 1 applic JOURNAL ENTRY AUDIT CLERK PRN EACH NARE SEE LABEL COMMENTS Last administered on 10/05/16 08:30; Start 10/05/16 at 08:45 ; Stop 10/08/16 at 08:44 Povidone Iodine 1 applic 1 applic ONCE TOPICAL Last administered on 10/05/16 08:00; Start 10/05/16 at 08:45; Stop 10/08/16 at 08:44 Promethazine HCl (Phenergan Inj) 25 mg Q6H PRN IM nausea; Start 10/05/16 at 13: 00 Rivaroxaban (Xarelto) 10 mg DAILY PO ; Start 10/06/16 at 09:00; Status Hold Sodium Chloride (NS 500 ml Inj) 500 ml @ 30 mls/hr [id number] PRN IV SEE LABEL COMMENTS; Start 10/05/16 at 08:45; Stop 10/05/16 at 18:21; Status DC Tranexamic Acid 1000 mg/Sodium Chloride 110 ml @ 220 mls/hr ONCE IV ; Start at 12:00; Stop 10/05/16 at 18:00; Status DC Zolpidem Tartrate (Ambien) 5 mg HS PRN PO SLEEP; Start 10/05/16 at 13:00 Physical Exam General Appearance: Well Developed (for her age), No Acute Distress Eyes Eye Exam: Pupils Reactive Ears & Nose Ears & Nose Exam: Nasal Mucosa [place] (pale) Throat Throat Exam: Oral Mucosa [place] & Moist (pale dry) Neck Neck Exam: Trachea Midline Pulmonary Resp Exam: Clear Bilaterally, Breath Sounds Equal Cardiology CV Exam: Regular, Good Perfusion Gastrointestinal/Abdomen GI Exam: Soft, Non-Tender, Bowel Sounds Present Musculoskeletal MS Exam: Good Strength (adequate) Integumentary Skin Exam: Clear, Warm, Normal Turgor Extremeties Extremities Exam: No Edema, Pedal Pulses Palpable Neurologic Neuro Exam: Awake, Oriented, Speech Clear, Moving All Extremities (limited on the right leg) Psychiatric Psych Exam: Appropriate Responses Assessment/Plan Problem List: (1) CKD (chronic kidney disease) stage 4, GFR 15-29 ml/min Plan: Patient's creatinine level appears to be remaining relatively stable at this time. Good oral intake established postop. Resume furosemide tomorrow. Continue to hold enalapril 20 mg twice a day for the present pending review of renal indices tomorrow. Continue amlodipine for the present. I will defer anticoagulation to orthopedics and/ or primary medical physician. Literature I reviewed appears to contraindicate Xarelto for prophylaxis postoperatively if the GFR is less than 30. Aspirin twice daily would be okay from a renal point of view as is a relatively low dose. Continue to avoid any nephrotoxic medications such as NSAIDs (including Tordadol ) and iodinated contrast. We will continue to follow during admission. (2) HTN (hypertension) Plan: Blood pressure improved. If renal function continues to remain stable we will resume enalapril possibly tomorrow. (3) Hypomagnesemia Plan: Hx of. Will check Mg levels (4) Secondary hyperparathyroidism of renal origin Plan: Check iPTH and Vit D (5) Vitamin D deficiency (6) Status post total right knee replacement (7) Anemia Plan: Will check iron saturation as well as ferritin tomorrow. Problem Qualifiers (1) HTN (hypertension): Qualified Code: I10 - Essential hypertension Agnes Baldwin MD Oct 06, 2016 15:47
[2016-10-06 16:00] VITALS: BP 113/53; PULSE 71; RESP 18; TEMP 97; O2SAT 94
[2016-10-06 20:00] VITALS: BP 118/74; PULSE 81; RESP 16; TEMP 98; O2SAT 97
[2016-10-06] MEDS: ATORVASTATIN 20 MG TAB PO SCH (21:17)
[2016-10-06] MEDS: DOCUSATE SODIUM 100 MG CAP PO PRN (21:17)
[2016-10-07] VITALS: BP 119/69; PULSE 69; RESP 17; TEMP 98.3; O2SAT 97
[2016-10-07] MEDS: ACETAMINOPHEN/HYDROcodone 325 MG/5 MG TAB PO PRN ×3 (05:05→13:52)
[2016-10-07] MEDS: PCA - TOTAL MG MORPHINE DELIVERED PER SHIFT SCH ×3 (06:00→20:17)
[2016-10-07 07:25] LABS: ANION GAP 8 MEQ/L (5-15); BICARBONATE 21.6 MEQ/L (21.0-32.0); BLOOD UREA NITROGEN 43 MG/DL (7-18); CHLORIDE 104 MEQ/L (98-107); GLOMERULAR FILTRATION RATE 24 ML/MIN (>89); POTASSIUM 4.3 MEQ/L (3.5-5.1); SODIUM (NA) 134 MEQ/L (136-145)
[2016-10-07 07:43] VITALS: BP 153/76; PULSE 82; RESP 17; TEMP 97.2; O2SAT 97
[2016-10-07 07:52] LABS: FERRITIN 394 NG/ML (8-252); TRANSFERRIN IRON PROFILE 153 MG/DL (200-360)
[2016-10-07] MEDS: SODIUM CHLORIDE 0.9% FLUSH 5 ML FLUSH IVF SCH ×2 (09:00→20:17)
[2016-10-07] MEDS: APIXABAN 2.5 MG TABLET PO SCH ×2 (09:00→20:17)
[2016-10-07] MEDS: CARVEDILOL 12.5 MG TAB PO SCH ×2 (09:39→20:16)
[2016-10-07] MEDS: CYANOCOBALAMIN 1,000 MCG TAB PO SCH (09:39)
[2016-10-07] MEDS: amLODIPine BESYLATE 5 MG TAB PO SCH (09:39)
[2016-10-07] MEDS: CALCIUM CARBONATE 1.25 GM (CA 500 MG) TAB PO SCH (09:40)
[2016-10-07] MEDS: FUROSEMIDE 20 MG TAB PO SCH (09:40)
[2016-10-07] MEDS: FERROUS SULFATE 325 MG (65 MG ELEMENTAL IRON) TAB PO SCH (09:40)
[2016-10-07] MEDS: CHOLECALCIFEROL (VIT D3) 1000 UNIT TAB PO SCH (09:40)
[2016-10-07 11:23] VITALS: BP 94/53; PULSE 72; RESP 17; TEMP 96.3; O2SAT 99
--- NOTE | 2016-10-07 11:33 | HHI.PR ---
Subjective Subjective Remarks Awake resting in bed pain management up with PT this am. Afebrile (Macey De Leon) Review of Systems Constitutional Constitutional: Fatigue, Weakness Constitutional Remarks 10 point ROS done positives noted, she is status post right total knee (Macey De Leon) GI/Abdomen GI/Abdomen Remarks Monitor bowel regimen none since admission (Macey De Leon) Musculoskeletal MS: Weakness, Stiffness (encourage movement and up with physical therapy, patient is status post right total knee arthroplasty), Discomfort/Pain (right knee) (Macey De Leon) Psychiatric Psychiatric: Normal Mood (Macey De Leon) Vitals/Results Intake & Output 10/06/16 10/06/16 10/07/16 15:00 23:00 07:00 Intake Total 450 ml 960 ml 480 ml Output Total 300 ml Balance 450 ml 660 ml 480 ml Intake Oral 450 ml 960 ml 480 ml Output Urine Total 200 ml Drainage Total 100 ml # Voids 5 3 3 # Bowel Movements 0 Vital Signs Vital Signs Date Time Temp Pulse Resp B/P Pulse Ox O2 Delivery O2 Flow Rate FiO2 10/07/16 11:23 96.3 72 17 94/53 99 10/07/16 07:43 97.2 82 17 153/76 97 10/07/16 06:00 20 10/07/16 00:00 98.3 69 17 119/69 97 10/06/16 21:36 16 10/06/16 20:00 98.0 81 16 118/74 97 10/06/16 16:00 97.0 71 18 113/53 94 10/06/16 12:00 96.2 71 18 107/67 96 (aMcey De Leon) CBC/BMP: 10/06/16 0607 10/07/16 0634 Lab Results Laboratory Tests Test 10/06/16 10/07/16 12:05 06:34 Parathyroid Hormone (Intact) 69.9 PG/ML Sodium Level 134 MEQ/L Potassium Level 4.3 MEQ/L Chloride Level 104 MEQ/L Carbon Dioxide Level 21.6 MEQ/L Anion Gap 8 MEQ/L Blood Urea Nitrogen 43 MG/DL Creatinine 2.01 MG/DL Estimat Glomerular Filtration 24 ML/MIN Rate Random Glucose 105 MG/DL Calcium Level 8.4 MG/DL Iron Level 24 MCG/DL Total Iron Binding Capacity 214 MCG/DL Percent Iron Saturation 11.2 % Ferritin 394 NG/ML Vitamin B12 Level 1421 PG/ML Current Medications Administered Medications Medications (Trade) Dose Ordered Sig/Donald Route PRN Reason Start Time Stop Time Status Last Admin Dose Admin Povidone Iodine (Betadine 7.5% Scrub) 1 applic ONCE TOPICAL 10/05/16 08:45 10/08/16 08:44 10/05/16 08:00 IV Flush (NS Flush) 2 ml BID IVF 10/05/16 21:00 10/07/16 09:00 Acetaminophen/ Hydrocodone Bitart ([place] 5-325 Mg) 2 tab Q4H PRN PO PAIN SCALE 5 TO 10 10/05/16 13:00 10/07/16 15:00 10/07/16 09:41 Docusate Sodium (Colace) 100 mg BID PRN PO constipation 10/05/16 13:00 10/06/16 21:17 PUDDLER HELPER Dosage Infused (Pha) 1 Q8HR .XX 10/05/16 14:00 10/07/16 06:00 Atorvastatin Calcium (Lipitor) 20 mg HS PO 10/05/16 21:00 10/06/16 21:17 Carvedilol (Coreg) 25 mg BID PO 10/05/16 21:00 10/07/16 09:39 Cholecalciferol (Vitamin D3) 1,000 units DAILY PO 10/06/16 09:00 10/07/16 09:40 Cyanocobalamin (Vitamin B12) 500 mcg DAILY PO 10/06/16 09:00 10/07/16 09:39 Calcium Carbonate (Oscal) 500 mg DAILY PO NS 10/06/16 09:00 10/07/16 09:40 Ferrous Sulfate (Ferrous Sulfate) 325 mg DAILY PO NS 10/06/16 09:00 10/07/16 09:40 Amlodipine Besylate (Norvasc) 5 mg DAILY PO 10/05/16 18:15 10/07/16 09:39 Furosemide (Lasix) 20 mg DAILY PO 10/07/16 09:00 10/07/16 09:40 (Macey De Leon) Physical Exam General General Appearance: Well Developed (for her age), No Acute Distress (Macey De Leon. SENIOR C WEB DEVELOPER) Eyes Eye Exam: Pupils Reactive (Macey De Leon SENIOR C WEB DEVELOPER) Ears & Nose Ears & Nose Exam: Nasal Mucosa [place] (pale) (Macey De Leon. SENIOR C WEB DEVELOPER) Throat Throat Exam: Oral Mucosa [place] & Moist (pale dry) (Macey De Leon. SENIOR C WEB DEVELOPER) Neck Neck Exam: Trachea Midline (Macey De Leon SENIOR C WEB DEVELOPER) Pulmonary Resp Exam: Clear Bilaterally, Breath Sounds Equal Resp Remarks In encouraged to turn cough and deep breathe (Macey De Leon SENIOR C WEB DEVELOPER) Cardiology CV Exam: Regular, Good Perfusion (Macey De Leon. SENIOR C WEB DEVELOPER) Gastrointestinal/Abdomen GI Exam: Soft, Non-Tender, Bowel Sounds Present GI Remarks Constipation no BM since admission or day before (Macey De Leon. SENIOR C WEB DEVELOPER) Musculoskeletal MS Exam: Good Strength (adequate) (Macey De Leon. SENIOR C WEB DEVELOPER) Integumentary Skin Exam: Clear, Warm, Normal Turgor (Macey De LeonP) Extremeties Extremities Exam: No Edema, Pedal Pulses Palpable (Macey De Leon. SENIOR C WEB DEVELOPER) Neurologic Neuro Exam: Awake, Oriented, Speech Clear, Moving All Extremities (limited on the right leg) (Macey De Leon SENIOR C WEB DEVELOPER) Psychiatric Psych Exam: Appropriate Responses (Macey De LeonP) Assessment/Plan Assessment/Plan (1) Status post total right knee replacement (2) CKD (chronic kidney disease) stage 4, GFR 15-29 ml/min (3) HTN (hypertension) (4) Hyperlipidemia (5) Arthritis Vital signs reviewed, normal trends pulse rate 99, afebrile Vital signs reviewed leukocytosis mild at 11 3, hemoglobin remains sign met 8.9 , renal function monitored for her medications and recommendations Initial Low vitamin D level started on by mouth dose History of arthritis to right knee, status post right total knee replacement, day 2, postoperative orthopedic care to include pain management, physical therapy, wound care per orthopedic team Home plan for a.m. -Physical therapy bowel regimen, constipation discussed meds with patient and recommendations for BM before discharge tomorrow. Mag citrate if no results from other meds ordered 1 Dr. Baldwin saw patient and evaluated his recommendations and plan a care .at this point we'll defer anticoagulation to orthopedics and/ or primary medical physician. Current plan is for patient to be placed on Eliquis per medical team. CK D stage IV, IV fluids off today, encourage by mouth liquids Appreciate nephro consult and expert opinion Avoid nephrotoxic agents Hypertension, stable Medical management Hyperlipidemia, stable Medical management Gout Medical management no acute complaints Discharge planning per Ortho within the next day or 2 Discussed with nurse Discussed with patient Discussed with Dr. Levine, seen on his behalf, time spent 25 minutes (Macey De Leon) Assessment/Plan seen, examined by myself, Dr Levine, today Discussed with patient DVT prophylaxis now pursued with Eliquis 2.5 mg twice a day Continue pain control Physical therapy Discussed with mid level provider The exam, history, and the medical decision-making described in the above note were completed with the assistance of the mid-level provider. I reviewed the findings presented. I attest that I had a [id number] encounter with the patient on the same day, and personally performed and documented my assessment and findings in the medical record. (John Levine MD) Macey De Leon Oct 07, 2016 11:33 John Levine MD Oct 07, 2016 18:58
[2016-10-07] MEDS ORDERED: MAGNESIUM CITRATE SOLN 300 ML BTL PO ONE (12:00)
--- NOTE | 2016-10-07 14:32 | HHI.PR ---
Subjective Remarks Patient currently out of room in a discharge conference. Renal indices are remaining stable. Discharge planning okay from renal point of view. I would like see the patient in the office in approximately 2-3 weeks. Continue current hypertensive regimen pending follow-up in office. Objective Vital Signs Date Time Temp Pulse Resp B/P Pulse Ox O2 Delivery O2 Flow Rate FiO2 10/07/16 14:00 15 10/07/16 11:23 96.3 72 17 94/53 99 10/07/16 07:43 97.2 82 17 153/76 97 10/07/16 06:00 20 10/07/16 00:00 98.3 69 17 119/69 97 10/06/16 21:36 16 10/06/16 20:00 98.0 81 16 118/74 97 10/06/16 16:00 97.0 71 18 113/53 94 I/O 10/06/16 10/06/16 10/06/16 10/07/16 10/07/16 10/07/16 07:00 15:00 23:00 07:00 15:00 23:00 Intake Total 0 ml 450 ml 960 ml 480 ml Output Total 845 ml 300 ml Balance -845 ml 450 ml 660 ml 480 ml Intake Oral 0 ml 450 ml 960 ml 480 ml Output Urine Total 825 ml 200 ml Drainage Total 20 ml 100 ml # Voids 5 3 3 # Bowel Movements 0 Result Diagram: 10/06/16 0607 10/07/16 0634 Agnes Baldwin MD Oct 07, 2016 14:32
[2016-10-07 15:34] VITALS: BP 98/51; PULSE 72; RESP 17; TEMP 96.4; O2SAT 97
[2016-10-07] MEDS: HYDROmorphone HCL 4 MG TAB PO PRN (18:45)
[2016-10-07 20:00] VITALS: BP 115/56; PULSE 78; RESP 16; TEMP 97.4; O2SAT 98
[2016-10-07] MEDS: DOCUSATE SODIUM 100 MG CAP PO PRN (20:15)
[2016-10-07] MEDS: ATORVASTATIN 20 MG TAB PO SCH (20:16)
[2016-10-08] VITALS: BP 117/65; PULSE 99; RESP 17; TEMP 97; O2SAT 97
[2016-10-08] MEDS: HYDROmorphone HCL 4 MG TAB PO PRN ×3 (00:06→08:55)
[2016-10-08] MEDS ORDERED: MAGNESIUM HYDROXIDE SUSP 30 ML CUP PO PRN (01:15)
[2016-10-08 07:28] VITALS: BP 145/61; PULSE 106; RESP 18; TEMP 99.7; O2SAT 96
[2016-10-08] MEDS: CYANOCOBALAMIN 1,000 MCG TAB PO SCH (08:55)
[2016-10-08] MEDS: CALCIUM CARBONATE 1.25 GM (CA 500 MG) TAB PO SCH (08:55)
[2016-10-08] MEDS: APIXABAN 2.5 MG TABLET PO SCH (08:55)
[2016-10-08] MEDS: CHOLECALCIFEROL (VIT D3) 1000 UNIT TAB PO SCH (08:56)
[2016-10-08] MEDS: FUROSEMIDE 20 MG TAB PO SCH (08:56)
[2016-10-08] MEDS: amLODIPine BESYLATE 5 MG TAB PO SCH (08:56)
[2016-10-08] MEDS: FERROUS SULFATE 325 MG (65 MG ELEMENTAL IRON) TAB PO SCH (08:56)
[2016-10-08] MEDS: CARVEDILOL 12.5 MG TAB PO SCH (08:57)
[2016-10-08] MEDS: SODIUM CHLORIDE 0.9% FLUSH 5 ML FLUSH IVF SCH (08:58)
== END 2016-10-08 10:18 | disposition home health service (06) | DRG 470 ==
LOC: HSDI 10-05 05:10 → N06A 10-05 20:26
PROVIDERS: ADMIT Orthopaedic Surgery; ATTEND Orthopaedic Surgery
PROC: 0SRC0J9 Replacement of Right Knee Joint with Synthetic Substitute, Cemented, Open Approach (ICD-10-PCS; principal; 2016-10-05 10:25)
DX: M17.11 Unilateral primary osteoarthritis, right knee (principal); N18.4 Chronic kidney disease, stage 4 (severe); N25.81 Secondary hyperparathyroidism of renal origin; R26.9 Unspecified abnormalities of gait and mobility; I12.9 Hypertensive chronic kidney disease with stage 1 through stage 4 chronic kidney disease, or unspecified chronic kidney disease; M10.9 Gout, unspecified; E78.00 Pure hypercholesterolemia, unspecified; Z79.82 Long term (current) use of aspirin; D64.9 Anemia, unspecified; E55.9 Vitamin D deficiency, unspecified; K21.9 Gastro-esophageal reflux disease without esophagitis; R11.2 Nausea with vomiting, unspecified
CPT/HCPCS: 73560; 80048; 80069; 82306; 82607; 82728; 83540; 83550; 83735; 83970; 85014; 85018; 85027; 86850; 86900; 86901; 88305; 88311; 94150; C1776; J0131; J0690; J2270; J2370; J2405; J2550; J2710; J3010; J7120; L1830

== ENCOUNTER → 2016-09-26 | Outpatient (CLI) | payer MEDICARE, OTHER ==
[~2016-09-26] MED LIST changes: +ALLO100T PO; +ASPI325T PO; +ASPI81TA81 PO; +ATOR20TA15 PO; +CALC600T25 PO; +CARV25TA PO; +D31000TA PO; +DIPH25CA PO; +ENAL20TA PO; +ESSE250T PO; +FERR325T2 PO; +FURO20TA PO; +HYDR-3516 PO; +MAPA500T13 PO; +NIAC500T67 PO; +VITA500S3 SL; +WALKER WHEELS/F1 MIS
[2016-09-26 11:18] LABS: BLOOD, URINE NEG (NEG); GLUCOSE,URINE NEG (NEG); HYALINE CAST, URINE 4 /lpf (RARE); KETONE, URINE NEG (NEG); NITRITE,URINE NEG (NEG); URINE COLOR COLORLESS (YELLW/STRAW)
[2016-09-26 11:19] LABS: COMMENT (UR) CATH-CULT NOT IND; CULTURE IF INDICATED CATH CULTURE NOT IND
[2016-09-26 11:23] LABS: AUTOMATED NEUTROPHIL # 3.4 TH/MM3 (1.8-7.7); BASOPHIL % 0.6 % (0.0-2.0); EOSINOPHIL # 0.1 TH/MM3 (0-0.4); EOSINOPHIL % 2.4 % (0.0-4.0); HEMATOCRIT 32.2 % (35.0-46.0); HEMO FLAGS DIFF FINAL; LYMPH % 29.6 % (9.0-44.0); LYMPHOCYTE # 1.8 TH/MM3 (1.0-4.8); MEAN CELL VOLUME 95.6 FL (80.0-100.0); MEAN CORPUSCULAR HEMOGLOBIN 31.3 PG (27.0-34.0); MEAN CORPUSCULAR HGB CONC 32.7 % (32.0-36.0); MONO % 9.3 % (0.0-8.0); NEUT % 58.1 % (16.0-70.0); PLATELET COUNT 159 TH/MM3 (150-450); RED BLOOD COUNT 3.37 MIL/MM3 (4.00-5.30); RED CELL DISTRIBUTION WIDTH 13.3 % (11.6-17.2); WHITE BLOOD COUNT 5.9 TH/MM3 (4.0-11.0)
[2016-09-26 11:40] LABS: BICARBONATE 27.7 MEQ/L (21.0-32.0); POTASSIUM 4.5 MEQ/L (3.5-5.1)
--- NOTE | 2016-09-26 12:22 | RADRPT ---
EXAM DATE/TIME: 09/26/2016 12:00 [facility] COMPARISON: No previous studies available for comparison. INDICATIONS : Evaluate for pneumothorax, pneumonia, or communicable disease. Pre op for total knee replacement. MEDICAL HISTORY : Hypertension. SURGICAL HISTORY : None. ENCOUNTER: Initial ACUITY: 1 day PAIN SCORE: 0/10 LOCATION: Bilateral chest FINDINGS: There is scarring in left upper lobe and there are degenerative changes in the patient's spine. Focal consolidation is not seen. Heart and mediastinum are unremarkable for technique. CONCLUSION: No acute cardiopulmonary disease. Compa Dozier MD on September 26, 2016 at 12:20 Board Certified Radiologist. This report was verified electronically.
--- NOTE | 2016-09-27 09:48 | EKG ---
Date Performed: 09/26/2016 Time Performed: 11:08:42 PTAGE: 76 years EKG: Sinus rhythm NORMAL ECG NO PREVIOUS TRACING DOCTOR: Matt Chavez Interpretating Date/Time 09/27/2016 09:46:57
== END ==
LOC: CPRE 10:24
PROVIDERS: ATTEND Orthopaedic Surgery
DX: Z01.810 Encounter for preprocedural cardiovascular examination (principal); Z01.811 Encounter for preprocedural respiratory examination; Z01.812 Encounter for preprocedural laboratory examination; M17.11 Unilateral primary osteoarthritis, right knee; N18.6 End stage renal disease
CPT/HCPCS: 36415; 71020; 80048; 81001; 85025; 85610; 93005

== ENCOUNTER 2016-11-29 08:42 | Emergency (ER) | payer MEDICARE, OTHER ==
[~2016-11-29] VITALS: Ht 157.5 cm; Wt 70.0 kg
[~2016-11-29 08:42] MED LIST changes: -ASPI81TA81 PO; -ASPI81TA82 PO; -ATOR20TA42 PO; -DOXA1 PO; -ENAL20TA81 PO; -FERR324T4 OR; -HYDR-2768 PO; -LASI20TA PO; -LORT5TAB PO; -METO50CR OR; -NEXI40CA PO; -NIAC500T5 PO; -OYST500T77 PO; -POTA-243 PO; -VITA100018 OR; -VITA250L OR
[2016-11-29 08:51] VITALS: BP 151/72; PULSE 76; RESP 17; TEMP 97.8; O2SAT 97
[2016-11-29] MEDS ORDERED: ORPHENADRINE INJ 60 MG/2 ML AMP IM ONE (09:30)
[2016-11-29] MEDS ORDERED: KETOROLAC TROMETHAMINE 60 MG/2 ML (IM) VIAL IM ONE (09:30)
[2016-11-29 09:38] VITALS: BP_SYST 121; BP_SYST 87; BP_DIAS 50; BP_DIAS 60; PULSE 62; RESP 18; TEMP 98.8; O2SAT 99
--- NOTE | 2016-11-29 09:38 | PD ---
HPI Chief Complaint: Fall Time Seen by Provider: 09:24 Travel History International Travel<30 days: No Contact w/Intl Traveler<30days: No Traveled to known affect area: No History of Present Illness HPI Patient is a 76-year-old female presenting to the emergency department for evaluation of right lower back pain after falling Monday night. Patient states that she got up and they'll the night and misjudged the bed and fell and hit the nightstand. The pain is a 6 out of 10 and is aching and sore. She has taken Lortab and Tylenol with no significant relief of symptoms. She states it' s painful when she takes a deep breath or coughs. She denies any other complaints at this time. She had no dizziness or chest pain prior to the fall. PFSH Past Medical History Hx Anticoagulant Therapy: Yes (81 MG ASA ) Arthritis: Yes Asthma: Yes Cancer: No Cardiovascular Problems: No High Cholesterol: Yes Chemotherapy: No Cerebrovascular Accident: No Diabetes: No Endocrine: No Genitourinary: No Hepatitis: No Hiatal Hernia: No Hypertension: Yes Immune Disorder: No Musculoskeletal: Yes (arthritis, lower back pain) Neurologic: No Psychiatric: No Reproductive: No Respiratory: No Renal Failure: Yes (STAGE IV) Thyroid Disease: No ?: Not Menopausal: Yes Past Surgical History Abdominal Surgery: No AICD: No Cardiac Surgery: No Ear Surgery: No Endocrine Surgery: No Eye Surgery: No Genitourinary Surgery: No Gynecologic Surgery: No Hysterectomy: No Joint Replacement: No Oral Surgery: No Pacemaker: No Thoracic Surgery: No Social History Alcohol Use: No Tobacco Use: No Substance Use: No Allergies-Medications (Allergen,Severity, Reaction): Coded Allergies: No Known Allergies (Verified , 11/29/16) Reported Meds & Prescriptions Reported Meds & Active Scripts Active Walker with Front Wheels (Device) 1 Mis Mis 1 Ea .ROUTE DIRECTED Aspirin 325 Mg Tab 325 Mg PO BID Hydrocodone-Acetaminophen 5-325 mg Tab 2 Tab PO Q4H PRN Reported Ferrous Sulfate DR (Ferrous Sulfate) 325 Mg Tabdr 1 Tab PO DAILY Magnesium 250 Mg Tab 500 Mg PO DAILY Calcium (Calcium Carbonate) 600 Mg Tab 1 Cap PO DAILY D3 (Cholecalciferol) 1,000 Unit Tab 11 Cap PO DAILY Vitamin B-12 (Cyanocobalamin) 500 Mcg Subl 500 Mcg SL DAILY Fish Oil ([place]-3 Fatty Acids) 1,000 Mg Cap 1 Cap PO DAILY Niacin (Niacinamide) 500 Mg Tablet 1 Tab PO DAILY Diphenhydramine (Diphenhydramine HCl) 25 Mg Cap 25 Mg PO HS PRN [place] Extra Strength (Acetaminophen) 500 Mg Tab 500 Mg PO HS Furosemide 20 Mg Tab 20 Mg PO DAILY Carvedilol 25 Mg Tab 25 Mg PO BID Enalapril (Enalapril Maleate) 20 Mg Tab 20 Mg PO BID Allopurinol 100 Mg Tab 100 Mg PO DAILY Atorvastatin (Atorvastatin Calcium) 20 Mg Tab 20 Mg PO HS Review of Systems Except as stated in HPI: all other systems reviewed are Neg Respiratory: Positive: Pleuritic Pain Musculoskeletal: Positive: Myalgias, Pain Skin: Positive Change in Pigmentation Physical Exam Narrative GENERAL: Well-developed, well-nourished, alert elderly female. Resting comfortably in no acute distress. SKIN: Warm and dry. Area of healing ecchymosis to the right mid back HEAD: Atraumatic. Normocephalic. EYES: Pupils equal and round. No scleral icterus. No injection or drainage. ENT: No nasal bleeding or discharge. Mucous membranes pink and moist. NECK: Trachea midline. No JVD. CARDIOVASCULAR: Regular rate and rhythm. RESPIRATORY: No accessory muscle use. Clear to auscultation. Breath sounds equal bilaterally. GASTROINTESTINAL: Abdomen soft, non-tender, nondistended. Hepatic and splenic margins not palpable. MUSCULOSKELETAL: Extremities without clubbing, cyanosis, or edema. No obvious deformities. Tender to palpation in right lower back. NEUROLOGICAL: Awake and alert. No obvious cranial nerve deficits. Motor grossly within normal limits. Five out of 5 muscle strength in the arms and legs. Normal speech. PSYCHIATRIC: Appropriate mood and affect; insight and judgment normal. Data Data Last Documented VS Vital Signs Date Time Temp Pulse Resp B/P (MAP) Pulse Ox O2 Delivery O2 Flow Rate FiO2 11/29/16 09:40 66 18 98 Room Air 11/29/16 09:38 98.8 87/50 (62) 121/60 (80) Orders Orders Ketorolac Inj (Toradol Inj) (11/29/16 09:30) Orphenadrine Inj (Norflex Inj) (11/29/16 09:30) Chest, Pa & Lat (11/29/16 ) [facility] Medical Decision Making Medical Screen Exam Complete: Yes Emergency Medical Condition: Yes Interpretation(s) Last Impressions Chest X-Ray 11/29/16 0000 Signed Impressions: Service Date/Time: Tuesday, November 29, 2016 10:10 - CONCLUSION: 1. Probable fracture of the lateral right eighth rib. 2. COPD changes and bronchiectasis. Jimmy Moe MD Vital Signs Date Time Temp Pulse Resp B/P (MAP) Pulse Ox O2 Delivery O2 Flow Rate FiO2 11/29/16 08:51 97.8 76 17 151/72 (98) 97 Differential Diagnosis Contusion versus fracture versus sprain versus strain versus other Narrative Course Patient is a 76-year-old female presenting to emergency evaluation of right rib pain. He is better signs are stable, she has an area of ecchymosis over the right mid back. X-ray ordered and pending. Chest x-ray read by the radiologist shows a probable right eighth rib fracture. COPD Abrasion was given Toradol and Norflex in the emergency department. Patient will be given a prescription for Lidoderm patch as well as Percocet. She was also given an incentive spirometer and was taught how to use this. She was encouraged to follow-up with her primary doctor. She was encouraged to apply warm heat to the affected area. She was encouraged return to emergency department for any new or worsening symptoms. Patient verbalized understanding of instructions. Patient stable for discharge. Diagnosis Primary Impression: Fall Qualified Codes: W19.XXXA - Unspecified fall, initial encounter Additional Impression: Right rib fracture Qualified Codes: S22.31XA - Fracture of one rib, right side, initial encounter for closed fracture Referrals: Primary Care Physician Patient Instructions: General Instructions, Rib Fracture (ED) Additional Instructions: Use incentive spirometer as directed Follow-up with your primary doctor Take medications as directed Return to emergency department for any new or worsening symptoms Apply warm heat to the affected area Med/Other Pt SpecificInfo: Prescription(s) given Scripts Oxycodone-Acetaminophen (Percocet) 5-325 mg Tab 1 TAB PO Q6H Y for PAIN, #10 TAB 0 Refills Prov: Domi Loera 11/29/16 Lidocaine (Lidoderm) 5 % Adh..patch 1 PATCH TOPICAL DAILY Y for PAIN SCALE 1 TO 10, #14 Prov: Domi Loera 11/29/16 Disposition: 01 DISCHARGE HOME Condition: Stable Domi Loera Nov 29, 2016 09:38
--- NOTE | 2016-11-29 10:18 | RADRPT ---
EXAM DATE/TIME: 11/29/2016 10:10 [facility] COMPARISON: KNEE RIGHT LTD (1 OR 2 VWS), October 05, 2016, 13:20. INDICATIONS : Fall Sat.on right ribs pain anterior to lateral rib cage. MEDICAL HISTORY : None. SURGICAL HISTORY : None. ENCOUNTER: Initial ACUITY: 3 days PAIN SCORE: 10/10 LOCATION: Right ribs. FINDINGS: The exam demonstrates probable fracture of the right lateral eighth rib. There are COPD changes within the pulmonary parenchyma. There are atelectatic changes and mild bronch iectasis in the lung bases. The heart is normal in size. The mediastinal contours are within normal l imits. There are old granulomatous calcification seen centrally. No pneumothorax is present. CONCLUSION: 1. Probable fracture of the lateral right eighth rib. 2. COPD changes and bronchiectasis. Jimmy Moe MD on November 29, 2016 at 10:15 Board Certified Radiologist. This report was verified electronically.
[2016-11-29] MEDS ORDERED: LIDO5DIS5 TOPICAL (10:33)
[2016-11-29] MEDS ORDERED: PERC5TAB12 PO (10:33)
== END 2016-11-29 10:59 | disposition home or self-care (01) ==
LOC: NEPD 08:42
DX: S22.31XA Fracture of one rib, right side, initial encounter for closed fracture (principal); W19.XXXA Unspecified fall, initial encounter; I10 Essential (primary) hypertension; E78.00 Pure hypercholesterolemia, unspecified; J45.909 Unspecified asthma, uncomplicated
CPT/HCPCS: 71020; 94150; 96372; 99284; J1885; J2360